=== PATIENT | male | born 1960 | race Caucasian/White ===

== ENCOUNTER 2016-09-07 08:46 | Inpatient (IN) | payer MEDICARE ==
[~2016-09-07] VITALS: Ht 177.8 cm; Wt 98.9 kg
== END 2016-09-07 13:15 | disposition short-term general hospital (02) | DRG 699 ==
LOC: MED 08:46
PROVIDERS: ADMIT Urology
DX: N32.89 Other specified disorders of bladder (principal); T83.9XXA Unspecified complication of genitourinary prosthetic device, implant and graft, initial encounter; R33.9 Retention of urine, unspecified; R31.0 Gross hematuria; N35.9 Urethral stricture, unspecified; J44.9 Chronic obstructive pulmonary disease, unspecified; M06.9 Rheumatoid arthritis, unspecified; Z86.19 Personal history of other infectious and parasitic diseases; Z96.659 Presence of unspecified artificial knee joint; Z87.01 Personal history of pneumonia (recurrent); N28.89 Other specified disorders of kidney and ureter
CPT/HCPCS: J0696